=== PATIENT | male | born 1960 | race Caucasian/White ===

== ENCOUNTER 2018-12-29 22:31 | Inpatient (IN) | payer OTHER ==
[~2018-12-29] VITALS: Ht 175.3 cm; Wt 96.0 kg
[2018-12-29 23:25] LABS: ALANINE AMINOTRANSFERASE 175 U/L (12-78); ALBUMIN 3.8 g/dL (3.4-5.0); ANION GAP 7 mmol/L (5-15); BASOPHILS # (AUTO) 0.08 x10^3/uL (0-0.1); BASOPHILS % (AUTO) 1 % (0-1); CALCIUM 9.4 mg/dL (8.5-10.1); CHLORIDE 110 mmol/L (98-107); EOSINOPHILS # (AUTO) 0.41 x10^3/uL (0-0.4); EOSINOPHILS % (AUTO) 4 % (1-7); LYMPHOCYTES % (AUTO) 30 % (22-44); MD NO; MEAN CORPUSCULAR HEMOGLOBIN 30.5 pg (27.5-34.5); MEAN CORPUSCULAR VOLUME 92.4 fL (81-97); MEAN PLATELET VOLUME 8.2 fL (7.4-10.4); MONOCYTES # (AUTO) 0.81 x10^3/uL (0.2-0.8); MONOCYTES % (AUTO) 8 % (2-9); NEUTROPHILS # (AUTO) 6.07 x10^3/uL (1.8-6.8); NEUTROPHILS % (AUTO) 58 % (42-75); PLATELET COUNT 308 x10^3/uL (130-400); RED BLOOD COUNT 5.75 x10^6/uL (4.38-5.82); RED CELL DISTRIBUTION WIDTH 13.2 % (9.4-14.8)
[2018-12-29 23:30] LABS: BILIRUBIN,TOTAL 0.5 mg/dL (0.2-1.0); T4 (THYROXINE) 11.2 mcg/dL (4.5-12.1); TROPONIN I 0.064 ng/mL (0.000-0.045)
[2018-12-29 23:31] LABS: ALKALINE PHOSPHATASE 100 U/L (45-117); TOTAL PROTEIN 7.8 g/dL (6.4-8.2)
--- NOTE | 2018-12-30 00:24 | NUR ---
IV STARTED AND PT TAKEN TO CT AT THIS TIME.
[2018-12-30] MEDS ORDERED: OMNIPAQUE 350 MG/ML, 100ML BOTTLE ONE (00:34)
--- NOTE | 2018-12-30 01:30 | NUR ---
PT RESTING/SITTING UP ON GURNEY, POSITION OF COMFORT. AT BEDSIDE, AWAITING CT RESULTS. VSS AND WILL CONT TO MONITOR.
[2018-12-30] MEDS ORDERED: hydrALAzine 20 MG/ML, 1ML IVPush PRN (02:30)
[2018-12-30] MEDS ORDERED: BISACODYL 10 MG SUPP PR PRN (02:30)
[2018-12-30] MEDS ORDERED: ONDANSETRON ODT 4 MG PO PRN (02:30)
[2018-12-30] MEDS ORDERED: DOCUSATE 100 MG CAPSULE PO PRN (02:30)
[2018-12-30] MEDS ORDERED: morphine SULFATE 10 MG/ML, 1ML IVPush PRN (02:30)
[2018-12-30] MEDS ORDERED: FUROSEMIDE 40 MG/4 ML IV ONE (02:30)
[2018-12-30] MEDS ORDERED: PROMETHAZINE 25 MG/ML, 1ML IM PRN (02:30)
[2018-12-30] MEDS ORDERED: POLYETHYLENE GLYCOL 17 GM PACKET PO PRN (02:30)
[2018-12-30] MEDS ORDERED: OXYcodone IR 5MG TABLET PO PRN (02:30)
[2018-12-30] MEDS ORDERED: ACETAMINOPHEN 325 MG TABLET PO PRN (02:30)
[2018-12-30] MEDS ORDERED: ONDANSETRON 2MG/ML, 2ML IVPush PRN (02:30)
[2018-12-30 02:43] VITALS: BP 142/92
[2018-12-30 02:53] LABS: FREE T4 (FREE THYROXINE) 1.15 ng/dL (0.76-1.46)
[2018-12-30 03:02] LABS: MICROSCOPIC NOT IND
[2018-12-30 03:03] LABS: CULTURE INDICATED? NO
[2018-12-30 03:11] LABS: HEMOGLOBIN A1C 7.3 % (4.2-6.3)
[2018-12-30] MEDS: HEPARIN 5,000 UNITS/ML, 1ML SQ SCH ×3 (03:20→20:43)
[2018-12-30] MEDS: NICOTINE 7 MG/24 HR PATCH.TD24 TD SCH (03:21)
[2018-12-30 05:51] LABS: TROPONIN I 0.064 ng/mL (0.000-0.045)
[2018-12-30] MEDS ORDERED: FLU VACC QS2019-20 36MOS UP/PF 0.5 ML IM-VACC ONE (08:00)
[2018-12-30 08:26] LABS: TROPONIN I 0.055 ng/mL (0.000-0.045)
[2018-12-30 08:58] VITALS: BP 129/93
[2018-12-30] MEDS: FUROSEMIDE 20 MG/2 ML IV SCH (11:29)
[2018-12-30] MEDS: LISINOPRIL 10 MG TABLET PO SCH (11:29)
[2018-12-30 12:25] VITALS: BP 150/105
[2018-12-30] MEDS: ASPIRIN 81 MG TABLET EC PO SCH (14:49)
[2018-12-30] MEDS: METOPROLOL SUCCINATE 25 MG TAB.ER.24H PO SCH (14:50)
[2018-12-30 17:30] VITALS: BP 135/92
[2018-12-30] MEDS: ATORVASTATIN 40 MG TABLET PO SCH (20:42)
[2018-12-30 21:54] VITALS: BP 129/89
[2018-12-31 02:00] VITALS: BP 124/94
[2018-12-31 05:03] LABS: BASOPHILS # (AUTO) 0.08 x10^3/uL (0-0.1); BASOPHILS % (AUTO) 1 % (0-1); EOSINOPHILS # (AUTO) 0.43 x10^3/uL (0-0.4); EOSINOPHILS % (AUTO) 4 % (1-7); LYMPHOCYTES % (AUTO) 26 % (22-44); MD NO; MEAN CORPUSCULAR HEMOGLOBIN 30.4 pg (27.5-34.5); MEAN CORPUSCULAR HGB CONC 32.9 g/dL (33.2-36.2); MEAN CORPUSCULAR VOLUME 92.5 fL (81-97); MEAN PLATELET VOLUME 7.8 fL (7.4-10.4); MONOCYTES # (AUTO) 0.79 x10^3/uL (0.2-0.8); MONOCYTES % (AUTO) 7 % (2-9); NEUTROPHILS # (AUTO) 7.35 x10^3/uL (1.8-6.8); NEUTROPHILS % (AUTO) 63 % (42-75); PLATELET COUNT 319 x10^3/uL (130-400); RED CELL DISTRIBUTION WIDTH 13.4 % (9.4-14.8)
[2018-12-31 05:14] LABS: ANION GAP 9 mmol/L (5-15); CALCIUM 9.3 mg/dL (8.5-10.1); CHLORIDE 106 mmol/L (98-107)
[2018-12-31 05:18] LABS: ALANINE AMINOTRANSFERASE 155 U/L (12-78); ALKALINE PHOSPHATASE 103 U/L (45-117); BILIRUBIN,TOTAL 0.8 mg/dL (0.2-1.0); CHOL/HDL RATIO 6.4; CHOLESTEROL, TOTAL 249 mg/dL (140-239); CREATININE 1.13 mg/dL (0.7-1.3); HDL CHOL % 16 % (26-37); HDL CHOLESTEROL (DIRECT) 39 mg/dL (40-60); LDL CHOLESTEROL,CALCULATED 146 mg/dL (54-169); LDL/HDL RATIO 3.7 (0.5-3.0); TOTAL PROTEIN 8.2 g/dL (6.4-8.2); TRIGLYCERIDES 319 mg/dL (50-200); VLDL CHOLESTEROL 64 mg/dL (0-25)
[2018-12-31 05:28] VITALS: BP 135/91
[2018-12-31] MEDS: NICOTINE 7 MG/24 HR PATCH.TD24 TD SCH (05:30)
[2018-12-31] MEDS: ASPIRIN 81 MG TABLET EC PO SCH (05:30)
[2018-12-31] MEDS: HEPARIN 5,000 UNITS/ML, 1ML SQ SCH ×3 (05:30→20:33)
[2018-12-31] MEDS: METOPROLOL SUCCINATE 25 MG TAB.ER.24H PO SCH (05:30)
[2018-12-31] MEDS: FUROSEMIDE 20 MG/2 ML IV SCH (08:40)
[2018-12-31] MEDS: LISINOPRIL 10 MG TABLET PO SCH (08:40)
[2018-12-31 08:49] VITALS: BP 127/91
[2018-12-31] MEDS ORDERED: GADOTERATE 10 MMOL/20 ML VIAL ONE (10:54)
[2018-12-31 13:47] VITALS: BP 123/87
[2018-12-31] MEDS: FUROSEMIDE 40 MG TABLET PO SCH (17:26)
[2018-12-31 19:29] VITALS: BP 128/93
[2018-12-31] MEDS: ATORVASTATIN 40 MG TABLET PO SCH (20:32)
[2019-01-01 00:49] VITALS: BP 146/91
[2019-01-01 05:11] VITALS: BP 136/93
[2019-01-01] MEDS: NICOTINE 7 MG/24 HR PATCH.TD24 TD SCH (05:13)
[2019-01-01] MEDS: HEPARIN 5,000 UNITS/ML, 1ML SQ SCH ×3 (05:14→20:02)
[2019-01-01] MEDS: ASPIRIN 81 MG TABLET EC PO SCH (05:14)
[2019-01-01] MEDS: METOPROLOL SUCCINATE 25 MG TAB.ER.24H PO SCH (05:14)
[2019-01-01 07:48] LABS: BASOPHILS # (AUTO) 0.05 x10^3/uL (0-0.1); BASOPHILS % (AUTO) 0 % (0-1); EOSINOPHILS # (AUTO) 0.25 x10^3/uL (0-0.4); EOSINOPHILS % (AUTO) 2 % (1-7); LYMPHOCYTES # (AUTO) 2.59 x10^3/uL (1-3.4); LYMPHOCYTES % (AUTO) 24 % (22-44); MD NO; MEAN CORPUSCULAR HGB CONC 32.9 g/dL (33.2-36.2); MEAN CORPUSCULAR VOLUME 91.2 fL (81-97); MEAN PLATELET VOLUME 7.5 fL (7.4-10.4); MONOCYTES # (AUTO) 0.86 x10^3/uL (0.2-0.8); MONOCYTES % (AUTO) 8 % (2-9); NEUTROPHILS # (AUTO) 7.29 x10^3/uL (1.8-6.8); NEUTROPHILS % (AUTO) 66 % (42-75); PLATELET COUNT 299 x10^3/uL (130-400); RED CELL DISTRIBUTION WIDTH 13.6 % (9.4-14.8)
[2019-01-01 07:51] VITALS: BP 134/103
[2019-01-01] MEDS: FUROSEMIDE 40 MG TABLET PO SCH ×2 (09:45→17:12)
[2019-01-01] MEDS: LISINOPRIL 10 MG TABLET PO SCH (09:45)
[2019-01-01 14:24] VITALS: BP 123/83
[2019-01-01] MEDS: FENOFIBRATE 54 MG TABLET PO SCH (17:12)
[2019-01-01 19:44] VITALS: BP 120/86
[2019-01-01] MEDS: ATORVASTATIN 40 MG TABLET PO SCH (20:02)
[2019-01-02 00:59] VITALS: BP 138/97
[2019-01-02 04:30] LABS: BASOPHILS # (AUTO) 0.05 x10^3/uL (0-0.1); BASOPHILS % (AUTO) 1 % (0-1); EOSINOPHILS # (AUTO) 0.25 x10^3/uL (0-0.4); EOSINOPHILS % (AUTO) 3 % (1-7); LYMPHOCYTES # (AUTO) 2.77 x10^3/uL (1-3.4); LYMPHOCYTES % (AUTO) 29 % (22-44); MD NO; MEAN CORPUSCULAR HEMOGLOBIN 30.3 pg (27.5-34.5); MEAN CORPUSCULAR HGB CONC 32.8 g/dL (33.2-36.2); MEAN CORPUSCULAR VOLUME 92.3 fL (81-97); MEAN PLATELET VOLUME 7.8 fL (7.4-10.4); MONOCYTES # (AUTO) 0.87 x10^3/uL (0.2-0.8); MONOCYTES % (AUTO) 9 % (2-9); NEUTROPHILS # (AUTO) 5.49 x10^3/uL (1.8-6.8); NEUTROPHILS % (AUTO) 58 % (42-75); PLATELET COUNT 278 x10^3/uL (130-400); RED BLOOD COUNT 6.29 x10^6/uL (4.38-5.82); RED CELL DISTRIBUTION WIDTH 13.5 % (9.4-14.8)
[2019-01-02 04:38] LABS: ALBUMIN 3.8 g/dL (3.4-5.0); ANION GAP 7 mmol/L (5-15); CALCIUM 8.9 mg/dL (8.5-10.1); CHLORIDE 106 mmol/L (98-107); CREATININE 0.92 mg/dL (0.7-1.3)
[2019-01-02 05:23] VITALS: BP 131/90
[2019-01-02] MEDS: NICOTINE 7 MG/24 HR PATCH.TD24 TD SCH (05:24)
[2019-01-02] MEDS: HEPARIN 5,000 UNITS/ML, 1ML SQ SCH ×2 (05:24→12:56)
[2019-01-02] MEDS: ASPIRIN 81 MG TABLET EC PO SCH (05:25)
[2019-01-02] MEDS: METOPROLOL SUCCINATE 25 MG TAB.ER.24H PO SCH (05:25)
[2019-01-02 07:21] VITALS: BP 153/105
[2019-01-02] MEDS ORDERED: REGADENOSON 0.4 MG/5 ML SYRINGE ONE (07:35)
[2019-01-02] MEDS: FENOFIBRATE 54 MG TABLET PO SCH (07:43)
[2019-01-02] MEDS: LISINOPRIL 10 MG TABLET PO SCH (07:43)
[2019-01-02] MEDS: FUROSEMIDE 40 MG TABLET PO SCH (07:43)
[2019-01-02] MEDS ORDERED: NICO-485 TD (13:46)
[2019-01-02] MEDS ORDERED: LISI-167 PO (13:46)
[2019-01-02] MEDS ORDERED: METO25TA91 PO (13:46)
[2019-01-02] MEDS ORDERED: SPIR25TA PO (13:46)
[2019-01-02] MEDS ORDERED: ATOR40TA78 PO (13:46)
[2019-01-02] MEDS ORDERED: FENO54TA17 PO (13:46)
[2019-01-02 14:19] VITALS: BP 147/98
== END 2019-01-02 15:24 | disposition home or self-care (01) | DRG 291 ==
LOC: ED 12-30 01:57 → EDIP 12-30 02:06 → 5SO 12-30 02:35
PROVIDERS: ADMIT Internal Medicine; ATTEND Family Medicine
DX: I11.0 Hypertensive heart disease with heart failure (principal); J96.01 Acute respiratory failure with hypoxia; I50.23 Acute on chronic systolic (congestive) heart failure; E78.1 Pure hyperglyceridemia; E78.5 Hyperlipidemia, unspecified; F17.200 Nicotine dependence, unspecified, uncomplicated; I34.0 Nonrheumatic mitral (valve) insufficiency; J44.9 Chronic obstructive pulmonary disease, unspecified; K76.0 Fatty (change of) liver, not elsewhere classified; Z82.49 Family history of ischemic heart disease and other diseases of the circulatory system; Z83.3 Family history of diabetes mellitus
CPT/HCPCS: 0399T; 36415; 71045; 71250; 71275; 74183; 76700; 78452; 80053; 80061; 80069; 81003; 83036; 83735; 83880; 84436; 84439; 84443; 84484; 85025; 85379; 90686; 93005; 93017; 93306; G0378; J1644; J1940; J2785; Q9967; A9502; A9575